=== PATIENT | female | born 1980 | race Caucasian/White ===

== ENCOUNTER 2019-11-18 14:09 | Outpatient (CLI) | payer BC, SELFPAY ==
[2019-11-18 14:34] LABS: Basophils Percent Auto 0.3 % (0.2-1.2); Eosinophils Absolute Auto 0.3 K/mm3 (0-0.3); Eosinophils Percent Auto 3.7 % (0-4.4); Hematocrit 30.7 % (37.0-47.0); Hemoglobin 10.2 g/dL (12.0-15.0); Immature Granulocyte Absolute 0.03 K/mm3 (0.00-0.031); Immature Granulocyte Percent A 0.3 % (0-0.5); Lymphocytes Absolute Auto 2.06 K/mm3 (0.9-3.2); Lymphocytes Percent Auto 22.7 % (18.3-44.2); Mean Corpuscular HGB Conc 33.2 g/dl (32-36); Mean Corpuscular Hemoglobin 30.5 pg (26-34); Mean Corpuscular Volume 91.9 fl (80-100); Mean Platelet Volume 10.2 fl (7.4-10.4); Monocytes Absolute Auto 0.6 K/mm3 (0.1-0.6); Monocytes Percent Auto 6.2 % (2.6-8.5); Neutrophils Absolute Auto 6.1 K/mm3 (1.3-6.7); Neutrophils Percent Auto 66.8 % (45.5-73.1); Platelet Count Result 234 k/mm3 (150-375); Red Blood Count 3.34 M/mm3 (4.2-5.4); Red Cell Distribution Width 12.3 % (11.5-14.5); White Blood Count 9.1 K/mm3 (4.5-10.0)
[2019-11-18 14:45] LABS: Hemoglobin A1C 4.7 % (<5.7)
[2019-11-18 15:19] LABS: Hepatitis B Surface Antigen Negative (Negative)
[2019-11-18 15:20] LABS: Free T4 Free Thyroxine 1.26 ng/mL (0.78-2.19); Vitamin D 25 Hydroxy 28.5 ng/mL
[2019-11-18 15:28] LABS: HIV 1/2 Ab P24 Ag Result Negative (Negative)
[2019-11-19 07:16] LABS: Rapid Plasma Reagin Non-Reactive (NonReactive)
== END 2019-11-18 14:10 | disposition home or self-care (01) ==
LOC: ANHLAB 14:13
PROVIDERS: Visit Provider Obstetrics & Gynecology
DX: Z36.9 Encounter for antenatal screening, unspecified (principal)
CPT/HCPCS: 36415; 82306; 83036; 84439; 84443; 85025; 86592; 86703; 86762; 87340; G0432

== ENCOUNTER 2019-11-19 13:09 | Outpatient (CLI) | payer BC, SELFPAY | END 2019-11-19 13:10 | disposition home or self-care (01) | PROVIDERS: Visit Provider Obstetrics & Gynecology | DX: Z36.9 Encounter for antenatal screening, unspecified (principal); Z3A.00 Weeks of gestation of pregnancy not specified | CPT/HCPCS: 36415; 86850; 86900; 86901 ==

== ENCOUNTER 2019-12-28 16:17 | Emergency (ER) | payer BC, SELFPAY ==
[2019-12-28 16:22] VITALS: BP 117/72; PULSE 91; RESP 18; TEMP 37; O2SAT 100
--- NOTE | 2019-12-28 16:41 | ED.ABDPAIN ---
HPI - Abdominal Pain General Chief Complaint: Abdominal Pain Stated Complaint: abd pain/17 wk preg Time Seen by Provider: 12/28/19 16:41 Source: patient Mode of arrival: ambulatory Limitations: no limitations History of Present Illness HPI narrative: A 39 y/o female presents to the ED with c/o sudden onset sharp lower ABD/groin pain that began while she was driving today. Pt is currently 17 weeks with twins. Pt notes that one fetus is at a high risk for Down's Syndrome. Pt's OBGYN is Dr. Thomas. Pt rates her current pain as a 6/10 in severity. Pt has not taken any medication for her pain. She denies numbness/tingling, N/V, dysuria, back pain, and vaginal bleeding. Location: other (lower ABD/groin) Pain scale (0-10): 6 Treatments prior to arrival: other (none) Related Data Home Medications Medication Instructions Recorded Confirmed levothyroxine 37.5 mcg PO DAILY 10/03/19 10/03/19 PNV cmb#95-ferrous fumarate-FA 1 tablet PO DAILY 12/28/19 [] aspirin [Aspir-81] 81 mg PO DAILY 12/28/19 mchfqvm-peknagjmi-ehat 1 tablet PO DAILY 12/28/19 ferrous sulfate 325 mg PO DAILY 12/28/19 omega 2-kwh-vmj-fish oil [Extreme 1 cap PO DAILY 12/28/19 [place]-3] Allergies Allergy/AdvReac Type Severity Reaction Status Date / Time ibuprofen Allergy Mild HIVES Verified 12/28/19 16:35 chocolate flavor Allergy Unknown Verified 12/28/19 16:35 shellfish derived Allergy Hives Verified 12/28/19 16:35 Review of Systems Review of Systems: All systems reviewed & are unremarkable except as noted in HPI and below Gastrointestinal: Gastrointestinal: Reports abdominal pain (lower/groin), Denies nausea and Denies vomiting Genitourinary: Genitourinary: Denies abnormal vaginal bleeding and Denies dysuria Musculoskeletal: Musculoskeletal: Denies back pain Neurologic: Denies numbness PMFSH Past Medical History Medical History Anemia Bronchitis Cholecystitis Ganglion cyst left wrist GERD (gastroesophageal reflux disease) Grand mal seizure Hypothyroid Knee tumor Tubal Tumor right knee, removed Surgical History Surgical History H/O laparoscopy History of cholecystectomy History of orthopedic surgery removal of benign tumor right femur as a teenager according to patient Social History Social History Smoking status: Current every day smoker Tobacco type: cigarettes Additional smoking assessment comments: 1/2 PPD Alcohol intake: unknown Gender identity (if verbalized by the patient): Female Comments No PCP on file. Exam Narrative: Exam Narrative: GENERAL: Well-appearing, well-nourished, and in no acute distress. HEAD: Normocephalic, atraumatic EYES: PERRLA and EOMI, conjunctiva clear without discharge THROAT:Mucous membranes moist, Oropharynx normal without erythema, exudate, peritonsillar swelling or fluctuance NECK: Supple, without lymphadenopathy or mass RESPIRATORY: No respiratory distress, Airway patent, Respirations non-labored, Clear to auscultation without rales, rhonchi or wheeze HEART: Regular rate and rhythm. No murmur heard. Normal peripheral pulses. ABDOMEN: Soft, nontender, nondistended, normal active bowel sounds. No masses. No rebound or guarding, No organomegaly. EXTREMITIES: No edema, normal strength with full range of motion. SKIN: Warm, dry, normal color without rash NEURO: Alert and oriented x3. CN 2-12 grossly intact. No focal deficits. PSYCH: Normal mood and affect. Course Course Emergency Course: Patient presented with sudden onset left groin pain that is resolving on its own. She reports pain is now 2/10 . I performed bedside ultrasound - no hydronephrosis seen on left kidney on ultrasounds. She has good movement to both fetuses. She has strong palpable left femoral artery and left pedal pulses. No clots see
[2019-12-28 16:48] LABS: Basophils Percent Auto 0.4 % (0.2-1.2); Eosinophils Absolute Auto 0.2 K/mm3 (0-0.3); Eosinophils Percent Auto 2.1 % (0-4.4); Hematocrit 32.3 % (37.0-47.0); Hemoglobin 10.9 g/dL (12.0-15.0); Immature Granulocyte Absolute 0.05 K/mm3 (0.00-0.031); Immature Granulocyte Percent A 0.5 % (0-0.5); Lymphocytes Absolute Auto 1.86 K/mm3 (0.9-3.2); Lymphocytes Percent Auto 17.8 % (18.3-44.2); Mean Corpuscular HGB Conc 33.7 g/dl (32-36); Mean Corpuscular Hemoglobin 31.2 pg (26-34); Mean Corpuscular Volume 92.6 fl (80-100); Mean Platelet Volume 9.7 fl (7.4-10.4); Monocytes Absolute Auto 0.6 K/mm3 (0.1-0.6); Monocytes Percent Auto 5.6 % (2.6-8.5); Neutrophils Absolute Auto 7.7 K/mm3 (1.3-6.7); Neutrophils Percent Auto 73.6 % (45.5-73.1); Platelet Count Result 263 k/mm3 (150-375); Red Blood Count 3.49 M/mm3 (4.2-5.4); Red Cell Distribution Width 13.2 % (11.5-14.5); White Blood Count 10.5 K/mm3 (4.5-10.0)
[2019-12-28 16:53] LABS: Add Urine Microscopic? YES; Appearance Urine Clear (Clear); Bacteria Urine Trace /hpf; Bilirubin Urine Negative (Negative); Blood Urine 1+ (Negative); Color Urine Yellow (Yellow); Glucose Urine UA Negative (Negative); Ketones Urine Negative (Negative); Leukocyte Esterase Ur Negative LEU/UL (Negative); Mucus Urine Rare /lpf; Nitrate Urine Negative (Negative); Protein Urine Negative (Negative); Specific Grav Ur 1.018 (1.001-1.035); Squamous Epithelial Cell Urine Occasional /hpf (Few); Urobilinogen Urine Negative mg/dL (<2.0); WBC Urine 0-3 /hpf
[2019-12-28 17:07] LABS: Alanine Aminotransferase 19 U/L (4-35); Albumin Level 3.7 g/dL (3.5-5.1); Alkaline Phosphatase 50 U/L (38-126); Aspartate Amino Transferase 24 U/L (14-36); Bilirubin,Total 0.3 mg/dL (0.2-1.3); Blood Urea Nitrogen 5 mg/dL (7-17); Calcium 8.6 mg/dL (8.4-10.2); Carbon Dioxide 24 mmol/L (22-30); Chloride 105 mmol/L (98-107); Estimated CRCL calculation 137 ml/min; Estimated Glomerular Filt Rate > 60; Glucose 76 mg/dL (65-105); Lipase 74 U/L (23-300); Sodium 133 mmol/L (137-145)
--- NOTE | 2019-12-28 18:34 | ED.ABDPAIN ---
HPI - Abdominal Pain General Chief Complaint: Abdominal Pain Stated Complaint: abd pain/17 wk preg Time Seen by Provider: 12/28/19 16:41 Related Data Home Medications Medication Instructions Recorded Confirmed levothyroxine 37.5 mcg PO DAILY 10/03/19 10/03/19 PNV cmb#95-ferrous fumarate-FA 1 tablet PO DAILY 12/28/19 [] aspirin [Aspir-81] 81 mg PO DAILY 12/28/19 fzdfjgh-vhfervakb-fzkm 1 tablet PO DAILY 12/28/19 ferrous sulfate 325 mg PO DAILY 12/28/19 omega 6-toc-pgz-fish oil [Extreme 1 cap PO DAILY 12/28/19 [place]-3] Allergies Allergy/AdvReac Type Severity Reaction Status Date / Time ibuprofen Allergy Mild HIVES Verified 12/28/19 16:35 chocolate flavor Allergy Unknown Verified 12/28/19 16:35 shellfish derived Allergy Hives Verified 12/28/19 16:35 PMFSH Past Medical History Medical History Anemia Bronchitis Cholecystitis Ganglion cyst left wrist GERD (gastroesophageal reflux disease) Grand mal seizure Hypothyroid Knee tumor Tubal Tumor right knee, removed Surgical History Surgical History H/O laparoscopy History of cholecystectomy History of orthopedic surgery removal of benign tumor right femur as a teenager according to patient Social History Social History Smoking status: Current every day smoker Tobacco type: cigarettes Additional smoking assessment comments: 1/2 PPD Alcohol intake: unknown Gender identity (if verbalized by the patient): Female Course Vital Signs Vital signs: Vital Signs Temperature 37.0 C 12/28/19 16:22 Pulse Rate 91 12/28/19 16:22 Respiratory Rate 18 12/28/19 16:22 Blood Pressure 117/72 12/28/19 16:22 Pulse Oximetry 100 12/28/19 16:22 Temperature 37.0 C 12/28/19 16:22 Pulse Rate 91 12/28/19 16:22 Respiratory Rate 18 12/28/19 16:22 Blood Pressure 117/72 12/28/19 16:22 Pulse Oximetry 100 12/28/19 16:22 MDM - Abdominal Pain Lab Data Result diagrams: 12/28/19 16:36 12/28/19 16:36 Labs: Lab Results 12/28/19 12/28/19 12/28/19 Range/Units 16:36 16:36 16:36 WBC 10.5 H (4.5-10.0) K/mm3 RBC 3.49 L (4.2-5.4) M/mm3 Hgb 10.9 L (12.0-15.0) g/dL Hct 32.3 L (37.0-47.0) % MCV 92.6 (80-100) fl MCH 31.2 (26-34) pg MCHC 33.7 (32-36) g/dl RDW 13.2 (11.5-14.5) % Plt Count 263 (150-375) k/mm3 MPV 9.7 (7.4-10.4) fl Immature Gran % (Auto) 0.5 (0-0.5) % Neut % (Auto) 73.6 H (45.5-73.1) % Lymph % (Auto) 17.8 L (18.3-44.2) % [place] % (Auto) 5.6 (2.6-8.5) % Eos % (Auto) 2.1 (0-4.4) % Baso % (Auto) 0.4 (0.2-1.2) % Lymph # (Auto) 1.86 (0.9-3.2) K/mm3 [place] # (Auto) 0.6 (0.1-0.6) K/mm3 Eos # (Auto) 0.2 (0-0.3) K/mm3 Baso # (Auto) 0.0 (0.0-0.1) K/mm3 Abs Immat Gran (auto) 0.05 H (0.00-0.031) K/mm3 Absolute Neuts (auto) 7.7 H (1.3-6.7) K/mm3 Absolute Nucleated RBC 0.0 (0.0-0.012) K/mm3 Nucleated RBC % 0.0 (0.0-0.2) % Sodium 133 L (137-145) mmol/L Potassium 4.0 (3.4-5.0) mmol/L Chloride 105 (98-107) mmol/L Carbon Dioxide 24 (22-30) mmol/L BUN 5 L D (7-17) mg/dL Creatinine 0.40 L (0.7-1.0) mg/dL Estim Creat Clear Calc 137 ml/min Estimated GFR > 60 (59 - ) Glucose 76 (65-105) mg/dL Calcium 8.6 (8.4-10.2) mg/dL Total Bilirubin 0.3 (0.2-1.3) mg/dL AST 24 (14-36) U/L ALT 19 (4-35) U/L Alkaline Phosphatase 50 (38-126) U/L Total Protein 7.0 (6.3-8.2) g/dL Albumin 3.7 (3.5-5.1) g/dL Lipase 74 (23-300) U/L Urine Color Yellow (Yellow) Urine Appearance Clear (Clear) Urine pH 6.0 (5.0-9.0) Ur Specific [place] 1.018 (1.001-1.035) Urine Protein Negative (Negative) mg/dL Urine Glucose (UA) Negative (Negative) mg/dL
== END 2019-12-28 20:07 | disposition home or self-care (01) ==
PROVIDERS: Emergency Provider General Practice; PCP Obstetrics & Gynecology
DX: O26.892 Other specified pregnancy related conditions, second trimester (principal); R10.32 Left lower quadrant pain; O30.009 Twin pregnancy, unspecified number of placenta and unspecified number of amniotic sacs, unspecified trimester; O99.282 Endocrine, nutritional and metabolic diseases complicating pregnancy, second trimester; E03.9 Hypothyroidism, unspecified; O99.012 Anemia complicating pregnancy, second trimester; D64.9 Anemia, unspecified; O99.612 Diseases of the digestive system complicating pregnancy, second trimester; K21.9 Gastro-esophageal reflux disease without esophagitis; O99.332 Smoking (tobacco) complicating pregnancy, second trimester; F17.210 Nicotine dependence, cigarettes, uncomplicated; Z3A.17 17 weeks gestation of pregnancy
CPT/HCPCS: 36415; 80053; 81001; 83690; 85025; 96374; 99284; J0131

== ENCOUNTER 2020-05-28 00:43 | Outpatient (CLI) | payer BC, SELFPAY ==
[2020-05-28 18:35] LABS: SARS-CoV-2 RNA PCR Negative
== END 2020-05-28 00:44 | disposition home or self-care (01) ==
LOC: ANHCOVIDDT 00:43
PROVIDERS: Visit Provider Obstetrics & Gynecology Gynecology
DX: Z01.812 Encounter for preprocedural laboratory examination (principal); Z20.828 Contact with and (suspected) exposure to other viral communicable diseases
CPT/HCPCS: 87635; C9803; U0003

== ENCOUNTER 2020-05-31 01:41 | Day surgery (SDC) | payer BC, SELFPAY ==
[2020-05-25 12:36] VITALS: BMI 29.6
[2020-05-31] VITALS (9 sets, daily range): BP systolic 139–185; BP diastolic 84–103; PULSE 41–54; RESP 13–16; TEMP 36.4; O2SAT 95–100
[2020-05-31] MEDS: LACTATED RINGERS 1,000 ML 30 ML IV CONT ×2 (07:00→09:25)
[2020-05-31] MEDS: ACETAMINOPHEN 500 MG TABLET 1000 MG PO (07:03)
--- NOTE | 2020-05-31 07:23 | P.HP_ITS ---
History of Present Illness History of Present Illness Consent: Risks, benefits, and alternatives have been discussed and questions answered. Patient agrees to proceed with procedure. Chief complaint: desires sterilization Narrative: Monei Mirza is a 39 year old female here for laparoscopic BTL. Patient is recently postop from csection for twins at 32 weeks at [facility] where they do not allow BTL. Patient has completed her childbearing and wants permanent sterilization. Risks of procedure including infection, bleeding, injury to internal organs, failure with increased ectopic, and general anesthesia reviewed. Patient is also aware this is a permanent, irreversible, sterilizing procedure. Patient voices understanding and agrees to proceed. [facility] Past Medical History Medical History (Updated 05/31/20 @ 07:28 by Cayla Deluna MD) Anemia Bronchitis Cholecystitis Ganglion cyst left wrist GERD (gastroesophageal reflux disease) Grand mal seizure had at age 1 years; none since then and on no medications Hypothyroid Knee tumor (normal spontaneous vaginal delivery) Tubal Tumor right knee, removed Surgical History Surgical History (Updated 05/31/20 @ 07:28 by Cayla Deluna MD) H/O laparoscopy History of twins 04/03 History of cholecystectomy History of orthopedic surgery removal of benign tumor right femur as a teenager according to patient Social History Social History Years smoked: 10 Smoking status: Current every day smoker Tobacco type: cigarettes Additional smoking assessment comments: 1/2 PPD Alcohol intake: unknown Gender identity (if verbalized by the patient): Female Spiritual care concerns: No Meds Home Medications and Allergies Home Medications Medication Instructions Recorded Confirmed Type levothyroxine 50 mcg PO DAILY 05/25/20 05/25/20 History Allergies Allergy/AdvReac Type Severity Reaction Status Date / Time ibuprofen Allergy Mild HIVES Verified 05/31/20 07:18 chocolate flavor Allergy Hives Verified 05/31/20 07:18 shellfish derived Allergy Hives Verified 05/31/20 07:18 Exam Const: General: healthy appearing, no acute distress and alert Orientation/consciousness: patient oriented x3 Resp: Effort & Inspection: normal respiratory effort Auscultation: clear to auscultation bilaterally Cardio: Rate: regular rate Rhythm: regular rhythm GI: GI Palp: Yes Soft to palpation, No Tenderness to palpation present (GI) and No Palpable mass present : External Female Exam: normal external appearance Speculum Exam - Vagina: normal appearance of the vagina and normal vaginal discharge Speculum Exam - Cervix: normal appearance of the cervix Bimanual exam- vagina & uter us: uterine size normal and consistency normal Bimanual Exam- Adnexa, other: normal adnexae and No adnexal tenderness Neuro: General: patient oriented x3 Assessment and Plan Assessment and plan (1) Encounter for sterilization: Code(s): Z30.2 - Encounter for sterilization Status: Acute Assessment and Plan: Plan to proceed with laparoscopic BTL
--- NOTE | 2020-05-31 07:26 | WPDANESEPPF ---
Anes - Initial Pre Proc Eval Procedure: Operation Date: 05/31/20 08:30 Proposed Procedures p Laparoscopic Bilateral Tubal Ligation with Fallopian Rings - Cayla Deluna MD Date/Time: 05/31/20 07:26 Surgeon: Cayla Deluna MD Pre Op Diagnosis: desires sterilization Patient Data Age: 39 Gender: F Height: 5 ft 2 in Weight: 71.15 kg Allergies Allergy/AdvReac Type Severity Reaction Status Date / Time ibuprofen Allergy Mild HIVES Verified 05/31/20 07:18 chocolate flavor Allergy Hives Verified 05/31/20 07:18 shellfish derived Allergy Hives Verified 05/31/20 07:18 Home Medications Medication Instructions Recorded Confirmed Type levothyroxine 50 mcg PO DAILY 05/25/20 05/25/20 History Patient hx anesthesia problems: none Family hx anesthesia problems: none PMFSH Social History Social History Years smoked: 10 Smoking status: Current every day smoker Tobacco type: cigarettes Additional smoking assessment comments: 1/2 PPD Alcohol intake: unknown Gender identity (if verbalized by the patient): Female Spiritual care concerns: No Anes - Eval Final PreProcedure Day of Procedure 05/31/20 07:26 Patient weight: normal Heart: regular rate and rhythm Lungs: clear to auscultation Airway: Mallampati scale class II Neurological: alert and oriented Last oral intake: >/= 8 hours ASA classification: II Emergent: no Anesthetic plan: proceed Anesthesia type and monitoring: general ETT and standard monitoring Informed Consent: The patient's anesthetic plan and its attendant risks and benefits were discussed with the patient/family/POA. Questions were solicited and answers provided to the satisfaction of the patient/family/POA.
--- NOTE | 2020-05-31 09:22 | PM.PROC ---
Procedure Note - Detailed Date of procedure: 05/31/20 Pre-op diagnosis: desires sterilization Post-op diagnosis: same Procedure performed: laparoscopic bilateral tubal ligation with Falope rings Description of procedure: The patient was taken to the operating room and placed under general anesthesia in the dorsal lithotomy position. She was prepped and draped in the usual sterile fashion. A bivalve speculum was placed in the vagina, cervix was grasped on the anterior lip with a tenaculum, and the acorn manipulator was placed. The speculum was removed. Attention was turned to the abdomen. A vertical skin incision was made at the base of the umbilicus. The Veress needle was placed, water drop test was normal, and opening patient pressure was 8mmHg. Pneumoperitoneum was obtained to patient pressure of 15mmHg. The Veress needle was removed. The abdomen was tented and the 5mm trocar was placed. The intra-abdominal placement was confirmed with the laparoscope. The patient was placed in Trendelenburg. A skin incision was made 2cm above the symphysis pubis in the midline. The 8mm trocar was placed under direct visualization. The tubes were brought into the visual field using a blunt probe. The right tube was grasped in the midportion with a ring applicator and the ring was applied. Good loop of tube was noticed within the applicator. The applicator was reset for the 2nd ring. The identical procedure was performed on the left side. Instruments were removed after picture documentation was taken. Pneumoperitoneum was reduced. Skin incisions are closed using 4-0 nylon in an interrupted fashion. The vaginal instruments are removed. Patient was taken down from lithotomy position and awakened from anesthesia. [facility] Surgeon: Cayla Deluna MD Cylinder Block Mechanic: maurilio olsen Estimated blood loss (mL): 5 Drains: No Packing: No Pathology: none sent Complications: No immediate complications Condition: stable Disposition: PACU Findings: normal-appearing tubes ovaries and uterus. Evidence of recent delivery.
[2020-05-31] MEDS: ONDANSETRON INJ 4 MG/2 ML VIAL IV PUSH (10:49)
--- NOTE | 2020-05-31 11:52 | SUR.PHASEII ---
DR. HOLLOWAY CALLED RE: SINUS BRADYCARDIA AND ELEVATED BLOOD PRESSURES; PT DENIES LIGHTHEADEDNESS; STATES SHE FEELS SLEEPY. DR. HOLLOWAY CLEARED PT TO BE DISCHARGED.
== END 2020-05-31 12:10 | disposition home or self-care (01) ==
PROVIDERS: Visit Provider Obstetrics & Gynecology Gynecology
PROC: (CPT 58671; principal; 2020-05-31 08:30)
DX: Z30.2 Encounter for sterilization (principal); K21.9 Gastro-esophageal reflux disease without esophagitis; E03.9 Hypothyroidism, unspecified; F17.210 Nicotine dependence, cigarettes, uncomplicated
CPT/HCPCS: 58671; A4264; A9270; J0330; J1100; J2250; J2405; J2704; J3010; J7120

== ENCOUNTER → 2022-04-11 13:10 | Outpatient (CLI) | payer BC, SELFPAY ==
--- NOTE | ~2022-04-11 | MM_ITS ---
EXAMINATION: MM screening camila BI w daniele HISTORY: Screening TECHNIQUE: Craniocaudal and mediolateral oblique 3-D tomosynthesis images were obtained and synthetic 2-D images were generated. CAD analysis was submitted and interpreted. COMPARISON: No prior mammogram is available for comparison at this institution. BREAST PARENCHYMAL COMPOSITION: There are scattered areas of fibroglandular density. FINDINGS: There is no mammographic evidence for malignancy in the right breast. There is a focal clus ter of indeterminate calcifications in the upper inner quadrant of the left breast, middle third. IMPRESSION: 1. Clustered indeterminate left breast calcifications, upper inner quadrant. 2. Magnification views are recommended. BI-RADS Category 0: Incomplete: Needs additional imaging evaluation. Reviewed, dictated and finalized at location A.
== END ==
PROVIDERS: PCP Nurse Practitioner; Visit Provider Nurse Practitioner
DX: Z12.31 Encounter for screening mammogram for malignant neoplasm of breast (principal); R92.8 Other abnormal and inconclusive findings on diagnostic imaging of breast
CPT/HCPCS: 77063; 77067

== ENCOUNTER → 2022-04-25 08:59 | Outpatient (CLI) | payer BC, SELFPAY ==
--- NOTE | ~2022-04-25 | MM_ITS ---
EXAMINATION: MM diagnostic mammo unilat LT HISTORY: Left breast calcifications on screening mammogram. TECHNIQUE: Magnification views of the left breast were performed. CAD analysis was submitted and inte rpreted. COMPARISON: 04/11/2022 FINDINGS: There are grouped fine pleomorphic calcifications in the middle third of the upper inner qu adrant at the 11:00 location 11 cm from the nipple no associated mass is identified. IMPRESSION: 1. Indeterminate left breast calcifications. 2. Stereotactic left breast biopsy is recommended. BI-RADS category 4, suspicious findings. Reviewed, dictated and finalized at location A.
== END ==
PROVIDERS: PCP Obstetrics & Gynecology Gynecology; Visit Provider Obstetrics & Gynecology Gynecology
DX: R92.8 Other abnormal and inconclusive findings on diagnostic imaging of breast (principal)
CPT/HCPCS: 77065

== ENCOUNTER → 2023-04-09 08:56 | Outpatient (CLI) | payer OTHER, SELFPAY ==
--- NOTE | ~2023-04-09 | MM_ITS ---
EXAMINATION: MM diagnostic camila BI w daniele HISTORY: Status post left partial mastectomy for DCIS TECHNIQUE: Bilateral ML, MLO and CC 3-D tomosynthesis images were performed and synthetic 2-D images were generated. CAD analysis was submitted and interpreted. COMPARISON: 04/03/2022creening mammogram and 04/25/2022 diagnostic left mammogram BREAST PARENCHYMAL COMPOSITION: There are scattered areas of fibroglandular density. FINDINGS: Postoperative change from left partial mastectomy including surgical clips are present in t he upper mid left breast. No suspicious mass or architectural distortion, malignant calcification, skin thickening or retractio n is noted otherwise. IMPRESSION: 1. Status post left partial mastectomy for DCIS; no evidence of malignancy 2. Routine annual mammographic screening is recommended BI-RADS Category 2: Benign finding(s). Reviewed, dictated and finalized at location A.
== END ==
DX: R92.8 Other abnormal and inconclusive findings on diagnostic imaging of breast (principal); D05.12 Intraductal carcinoma in situ of left breast
CPT/HCPCS: 77062; 77066; G0279

== ENCOUNTER 2025-02-26 15:20 | Outpatient (CLI) | payer OTHER, SELFPAY ==
--- NOTE | ~2025-02-26 | US_ITS ---
Pelvic ultrasound. Clinical History: Excessive and frequent menstruation Technique: Realtime transabdominal scanning of the pelvis was performed. Color flow Doppler and Doppl er spectral analysis were performed. Findings: The uterus is anteverted. The endometrial stripe has a thickness of 21 mm. No focal mass i s identified. The right ovary measures 4.2 x 2.3 x 2.2 cm. No significant right ovarian or adnexal mass is seen. The left ovary measures 2.7 x 1.5 x 1.9 cm. No significant left ovarian or adnexal mass is seen. There is no evidence of free fluid in the cul de sac. Impression: Prominent endometrial stripe is presumably related to stage in the menstrual cycle. Reviewed, dictated and finalized at location . Impression: Prominent endometrial stripe is presumably related to stage in the menstrual cy marshal.
== END 2025-02-26 15:21 | disposition home or self-care (01) ==
LOC: MICIMG 15:21
PROVIDERS: PCP Nurse Practitioner Family; Visit Provider Nurse Practitioner
DX: N92.0 Excessive and frequent menstruation with regular cycle (principal)
CPT/HCPCS: 76856

== ENCOUNTER 2025-03-23 01:30 | Day surgery (SDC) | payer OTHER, SELFPAY ==
[2025-03-16 10:47] VITALS: BMI 35.6
--- NOTE | 2025-03-16 11:00 | PC.NURSE ---
Report to the Outpatient Waiting Room, entrance under the green pavilion located off [facility], at time __07:00am on date 03/23/25 . Planned Procedure Time: 09:00am .? Time changes happen often and if your time is changed the preop area will call you the afternoon before. - You and your visitor will be asked to self-screen and do not enter if you have any COVID symptoms. Please call surgeon if you need to reschedule. - A mask is optional within the hospital at this time. Patients may have clear liquids (water, carbonated beverages, clear teas, apple juice) until 3 hours prior to surgery with a maximum of 20 ounces. - No food from midnight until time of surgery and no smoking, or chewing tobacco (or any form of nicotine). No chewing gum, candy or mints. (0600am) Take only the following medications with a SIP of water on the morning of surgery: ____None DO NOT STOP ANY OF YOUR OTHER PRESCRIPTION MEDICATIONS PRIOR TO SURGERY EXCEPT THE FOLLOWING Hold all vitamins and supplements for 3 days per anesthesiologist.Date of last dose 03/19/25 Medications to discontinue per physician None Date to take last dose None Please no make-up, nail [place] k[place], hairspray, perfume, deodorant, or body powder the day of surgery.? No jewelry (including any body piercings) or valuables the day of surgery, leave them at home.? Please take a shower or bath the night before, or the morning of, surgery with an antibacterial soap.? Wear comfortable, loose fitting clothing.? - Jewelry must be removed prior to entering the operating room.? Rings and piercings that are not removed may be cut off. - The hospital will not accept responsibility for valuables.? - Please leave all valuables, including medications, at home the day of surgery. If you are going home after surgery, a licensed production truck driver must drive you home.? - NO public transportation without another adult if you receive anesthesia. - We recommend that an adult stay with you for 24 hours following discharge. - We also recommend that you do not drive, make important decision, drink alcoholic beverages, or take any drugs that were not prescribed by your health care provider for at least 24 hours after your discharge time. Follow any additional instructions given to you from your surgeon. Telephone instructions given to __Patient and asked if any additional questions and then verbalized understanding. Patient advised to call surgeon office or pre surgery nurse liaison [phone] if any additional questions.
--- OUTSIDE RECORDS SUMMARY | 2025-03-23 01:33 | XMS_ITS ---
Author Organization [facility] Address [address] [place] [id number] Care Team Providers Care Manager N[place] Name Role Phone Tamar Chen [employer] Primary Care Provider + Jay Baker DO Unavailable Maycol Orlando MD Unavailable [phone] Jose Antonio Her MD Unavailable [phone] Active Problems Problem Noted Date Diagnosed Date Prophylactic use of tamoxifen 07/18/2023 Encounter for monitoring tamoxifen therapy 07/18 Personal history of radiation therapy 10/05/2022 Back skin lesion 09/15/2022 Overview (09/15/2022): Added automatically from request for surgery [id number] Intraductal carcinoma in situ of left breast Cancer Staging:Pathologic stage from 07/31/2022:Stage Unknown(pTis (DCIS), pNX, cM0, G3, ER+, WA+, HER2: Not Assessed) - Signed by Jose Antonio Her MD on 07/31/2022 Ductal carcinoma in situ (DCIS) of left breast 0 05/31/2022 Current Treatment and Therapy Plans No current plan information found. Past Treatment and Therapy Plans No past plan information found. Radiation Treatments * Course [id number] - 09/05/2022 Treatment Period Energy Fraction Dose Fractions Total Dose Plans Planned L BRST BST 08/30/2022 - 09/05/2022 250 5 / 1,250 PRONE L BRST 08/09/2022 - 09/05/2022 267 4,005 Reference Points Delivered L [id number] 08/09/2022 - 09/05/2022 4,005 L BRS [id number] 08/30/2022 - 09/05/2022 1,250
--- OUTSIDE RECORDS SUMMARY | 2025-03-23 01:33 | XMS_ITS | Data Portability ---
Author Organization [place] - [facility] [employer], Main Office Address [address] [place] [address] Assessment No assessment recorded. Plan of Treatment Reminders Order Date Submit Date Provider Last Modified By Organization Details Last Modified Time Details Appointments None recorded. Lab None recorded. Referral None recorded. Procedures None recorded. Surgeries None recorded. Imaging None recorded. Medication Orders ergocalcife rol (vitamin D2) 1,250 mcg (50,000 unit) capsule 2022 023 [facility] 1418, [address], [address], 10:42:26 Patient TargetsNo targets recorded. Patient Instructions Encounter Date Encounter Id Patient Instructions Last Modified By Organization Details Last Modified Time 02/27/2023 [id number] Wellness after 02/29/24 [email or web address] Not available 02/27/2023 10:52:39 Reason for Referral None Reported. Results Created Date Observation Date Name Description Value Unit Range Abnormal Flag Note LastModifiedBy Organization Detail LastModifiedTime 09/05/20 22 09/06/2022 HEMOG LOBIN A1C hemoglobin A1C 5.0 %_of_ total _HGB <5.7 normal For the purpo se of dean padrong for the prese nce of diabe vy: <5.7% Consi stent with the absen ce of diabe vy 5.7-6 .4% Consi stent with incre ased risk for diabe vy (pred iabet es) > or =6.5% Consi stent with diabe vy This assay resul t is consi stent with a decre ased risk of diabe vy. Curre ntly, no conse nsus exist elaina barker use of hemog lobin A1c for diagn osis of diabe vy in child arielle. Accor ding to Ameri can Diabe vy Assoc iatio n (ADA) guide lines , hemog lobin A1c <7.0% repre sents optim al contr ol in non-p regna nt diabe tic patie nts. Diffe rent irene cs may apply to speci fic patie nt popul ation s. Stand ards of Medic al Care in Diabe vy(A DA). Not Available [facility] [address] [place], [address], 09/06/2022 08:33:55 09/05/20 22 09/06/2022 VITAM IN D,25- OH,TO AVEL,I A vitamin D,25-oh,tota l,ia 18 NG/mL 30-100 low Vitam in D Statu s 25-OH Vitam in D: Defic iency : <20 ng/mL Insuf ficie ncy: 20 - 29 ng/mL Optim al: > or = 30 ng/mL For 25-OH Vitam in D testi ng on patie nts on D2-hughes pplem entat ion and patie nts for whom quant itati on of D2 and D3 fract ions is requi red, the [employer] Assur eD(TM ) 25-OH VIT D, (D2,D 3), LC/MS /MS is recom randi d: order code [id number] (nohemy ents >2yrs ). See Note 1 Note 1 For addit ional infor pili willson, pleas e refer to http: //[facility] pamela Dixon gndillon ics.c om/fa q/FAQ 199 (This link is being provi ded for infor pili griggs/ educa mitali manzo purpo ses only. ) Not Available [employer] [facility] [address] [place], [address], 09/06/2022 08:33:54 09/05/20 22 09/06/2022 VITAM IN B12/F OLATE , SERUM PANEL vitamin B12 375 pg/mL 200-11 00 normal Pleas e Note: Altho ugh the refer ence range for vitam in B12 is 200-1 100 pg/mL , it has been repor chris that betwe en 5 and 10% of patie nts with value s betwe en 200 and 400 pg/mL may exper ience neuro psych iatri c and hemat ologi c abnor malit ies due to occul t B12 defic iency ; less than 1% of patie nts with value s above 400 pg/mL will have sympt oms. Not Available [employer] [address] [place], [address], 09/06/2022 08:33:54 09/05/20 22 09/06/2022 VITAM IN B12/F OLATE , SERUM PANEL folate, serum 8.4 NG/mL normal Refer ence Range Low: <3.4 Borde rline : 3.4-5 .4 Erika l: >5.4 Not Available [employer] [address], [address], 09/06/2022 08:33:54 09/05/2009/06/2022 TSH TSH 1.98 mIU/L normal Refer ence Range > or = 20 Years 0.40- 4.50 Pregn xavier Range s First trime ster 0.26- 2.66 Secon d trime ster 0.55- 2.73 Third trime ster 0.43- 2.91 Not Available [employer] [address], [address], 09/06/2022 08:33:53 09/05/2009/06/2022 CBC (INCL UDES DIFF/ PLT) white blood cell count 4.9 thous and/u L 3.8-10 .8 normal Not Available [facility] [address] [place], [address], 09/06/2022 08:33:53 09/05/2009/06/2022 CBC (INCL UDES DIFF/ PLT) red blood cell count 4.63 wendy on/uL 3.80-5 .10 normal Not Available [employer] [address] [place], [address], 09/06/2022 08:33:53 09/05/20 22 09/06/2022 CBC (INCL UDES DIFF/ PLT) hemoglobin 13.1 g/dL 11.7-1 5.5 normal Not Available [address], [address], 09/06/2022 08:33:53 09/05/20 22 09/06/2022 CBC (INCL UDES DIFF/ PLT) hematocrit 39.8 % 35.0-4 5.0 normal Not Available [address], [address], 09/06/2022 08:33:53 09/05/20 22 09/06/2022 CBC (INCL UDES DIFF/ PLT) MCV 86.0 fL 80.0-1 00.0 normal Not Available [address], [address], 09/06/2022 08:33:53 09/05/20 22 09/06/2022 CBC (INCL UDES DIFF/ PLT) MCH 28.3 pg 27.0-3 3.0 normal Not Available [address], [address], 09/06/2022 08:33:53 09/05/20 22 09/06/2022 CBC (INCL UDES DIFF/ PLT) MCHC 32.9 g/dL 32.0-3 6.0 normal Not Available [address], [address], 09/06/2022 08:33:53 09/05/20 22 09/06/2022 CBC (INCL UDES DIFF/ PLT) RDW 13.0 % 11.0-1 5.0 normal Not Available [address], [address], 09/06/2022 08:33:53 09/05/20 22 09/06/2022 CBC (INCL UDES DIFF/ PLT) platelet count 294 thous and/u L 140-40 0 normal Not Available [address], [address], 09/06/2022 08:33:53 09/05/20 22 09/06/2022 CBC (INCL UDES DIFF/ PLT) MPV 10.1 fL 7.5-12 .5 normal Not Available [address], [address], 09/06/2022 08:33:53 09/05/20 22 09/06/2022 CBC (INCL UDES DIFF/ PLT) absolute neutrophils 3263 cells /uL 1500-7 800 normal Not Available [address], [address], 09/06/2022 08:33:53 09/05/20 22 09/06/2022 CBC (INCL UDES DIFF/ PLT) absolute lymphocytes 1156 cells /uL 850-39 00 normal Not Available [address], [address], 09/06/2022 08:33:53 09/05/20 22 09/06/2022 CBC (INCL UDES DIFF/ PLT) absolute monocytes 279 cells /uL 200-95 0 normal Not Available [address], [address], 09/06/2022 08:33:53 09/05/20 22 09/06/2022 CBC (INCL UDES DIFF/ PLT) absolute eosinophils 181 cells /uL 15-500 normal Not Available [address], [address], 09/06/2022 08:33:53 09/05/20 22 09/06/2022 CBC (INCL UDES DIFF/ PLT) absolute basophils 20 cells /uL 0-200 normal Not Available [address], [address], 09/06/2022 08:33:53 09/05/20 09/06/2022 CBC (INCL UDES DIFF/ PLT) neutrophils 66.6 % normal Not Available [address], [address], 09/06/2022 08:33:53 09/05/20 22 09/06/2022 CBC (INCL UDES DIFF/ PLT) lymphocytes 23.6 % normal Not Available [address], [address], 09/06/2022 08:33:53 09/05/20 22 09/06/2022 CBC (INCL UDES DIFF/ PLT) monocytes 5.7 % normal Not Available [address], [address], 09/06/2022 08:33:53 09/05/20 22 09/06/2022 CBC (INCL UDES DIFF/ PLT) eosinophils 3.7 % normal Not Available [address], [address], 09/06/2022 08:33:53 09/05/20 22 09/06/2022 CBC (INCL UDES DIFF/ PLT) basophils 0.4 % normal Not Available [address], [address], 09/06/2022 08:33:53 09/05/20 22 09/06/2022 COMPR EHENS ANTIONE METAB OLIC PANEL glucose 87 mg/dL 65-99 normal Fasti ng refer ence inter mirian Not Available [address], [address], 09/06/2022 08:33:52 09/05/20 22 09/06/2022 COMPR EHENS ANTIONE METAB OLIC PANEL urea nitrogen (BUN) 6 mg/dL 7-25 low Not Available [address], [address], 09/06/2022 08:33:52 09/05/20 22 09/06/2022 COMPR EHENS ANTIONE METAB OLIC PANEL creatinine 0.59 mg/dL 0.50-0 .99 normal Not Available [address], [address], 09/06/2022 08:33:52 09/05/20 22 09/06/2022 COMPR EHENS ANTIONE METAB OLIC PANEL eGFR 115 mL/mi n/1.7 3m2 > or = 60 normal The eGFR is based on the CKD-E PI 2020 equat ion. To calcu late the new eGFR from a previ ous Creat inine or Cysta tin C resul t, go to https ://mis can.denilson mckee/william varghese s/ kdoqi /gfr% 5Fcal culat or Not Available [address] [address] [place], [address], 09/06/2022 08:33:52 09/05/20 22 09/06/2022 COMPR EHENS ANTIONE METAB OLIC PANEL BUN/creatini ne ratio 10 (calc ) 6-22 normal Not Available [address], [address], 09/06/2022 08:33:52 09/05/20 22 09/06/2022 COMPR EHENS ANTIONE METAB OLIC PANEL sodium 140 mmol/ L 135-14 6 normal Not Available [address], [address], 09/06/2022 08:33:52 09/05/20 22 09/06/2022 COMPR EHENS ANTIONE METAB OLIC PANEL potassium 4.3 mmol/ L 3.5-5. 3 normal Not Available [address], [address], 09/06/2022 08:33:52 09/05/20 22 09/06/2022 COMPR EHENS ANTIONE METAB OLIC PANEL chloride 105 mmol/ L 98-110 normal Not Available [address], [place], [address], 09/06/2022 08:33:52 09/05/20 22 09/06/2022 COMPR EHENS ANTIONE METAB OLIC PANEL carbon dioxide 31 mmol/ L 20-32 normal Not Available [address], [address], 09/06/2022 08:33:52 09/05/20 22 09/06/2022 COMPR EHENS ANTIONE METAB OLIC PANEL calcium 9.0 mg/dL 8.6-10 .2 normal Not Available [address], [address], 09/06/2022 08:33:52 09/05/20 22 09/06/2022 COMPR EHENS ANTIONE METAB OLIC PANEL protein, total 6.5 g/dL 6.1-8. 1 normal Not Available [address], [address], 09/06/2022 08:33:52 09/05/20 22 09/06/2022 COMPR EHENS ANTIONE METAB OLIC PANEL albumin 4.0 g/dL 3.6-5. 1 normal Not Available [address], [address], 09/06/2022 08:33:52 09/05/20 22 09/06/2022 COMPR EHENS ANTIONE METAB OLIC PANEL globulin 2.5 g/dL_ (calc ) 1.9-3. 7 normal Not Available [address], [address], 09/06/2022 08:33:52 09/05/20 22 09/06/2022 COMPR EHENS ANTIONE METAB OLIC PANEL albumin/glob ulin ratio 1.6 (calc ) 1.0-2. 5 normal Not Available [address], [address], 09/06/2022 08:33:52 09/05/20 22 09/06/2022 COMPR EHENS ANTIONE METAB OLIC PANEL bilirubin, total 0.5 mg/dL 0.2-1. 2 normal Not Available [address], [address], 09/06/2022 08:33:52 09/05/20 22 09/06/2022 COMPR EHENS ANTIONE METAB OLIC PANEL alkaline phosphatase 72 U/L 31-125 normal Not Available [address], [address], 09/06/2022 08:33:52 09/05/20 22 09/06/2022 COMPR EHENS ANTIONE METAB OLIC PANEL AST 56 U/L 10-30 high Not Available [address], [address], 09/06/2022 08:33:52 09/05/20 22 09/06/2022 COMPR EHENS ANTIONE METAB OLIC PANEL ALT 68 U/L 6-29 high Not Available [address], [address], 09/06/2022 08:33:52 09/05/20 22 09/06/2022 LIPID PANEL , STAND GOYO cholesterol, total 156 mg/dL <200 normal Not Available [address], [address], 09/06/2022 08:33:52 09/05/20 22 09/06/2022 LIPID PANEL , STAND GOYO HDL cholesterol 55 mg/dL > or = 50 normal Not Available [address], [address], 09/06/2022 08:33:52 09/05/20 22 09/06/2022 LIPID PANEL , STAND GOYO triglyceride s 73 mg/dL <150 normal Not Available [address], [address], 09/06/2022 08:33:52 09/05/20 22 09/06/2022 LIPID PANEL , STAND GOYO LDL-choleste rol 85 mg/dL _(malinda c) normal Refer ence range : <100 Jose Alejandro able range <100 mg/dL for prima ry preve ntion ; <70 mg/dL for patie nts with CHD or diabe tic patie nts with > or = 2 CHD risk facto rs. LDL-C is now calcu lated using the Luanne n-Hop kins calcu gonzales n, which is a valid ated novel metho d provi ding karolina r accur acy than the Fried ailyn equat ion in the estim ation of LDL-C . Luanne willson SS et al. JOSI. 2013; 310(1 9): 2061- 2068 (http ://ed ucati on.24tidy. com/f aq/FA Q164) Not Available [facility] [address] [place], [address], 09/06/2022 08:33:52 09/05/20 22 09/06/2022 LIPID PANEL , STAND GOYO chol/HDLC ratio 2.8 (calc ) <5.0 normal Not Available [facility] [address] [place], [address], 09/06/2022 08:33:52 09/05/20 22 09/06/2022 LIPID PANEL , STAND GOYO non HDL cholesterol 101 mg/dL _(malinda c) <130 normal For patie nts with diabe vy plus 1 major ASCVD risk facto r, treat ing to a non-H DL-C goal of <100 mg/dL (LDL- C of <70 mg/dL ) is shanika richmond optio n. Not Available [facility] [address] [place], [address], 09/06/2022 08:33:52 01/15/20 23 01/14/2023 XR, ankle No observ ation record ed. [email or web address] [facility] [address], [place], [address], 01/16/2023 20:54:47 02/28/20 25 02/26/2025 imagi ng/di sreekanthos tic resul t No observ ation record ed. [facility] [address], [place], [address], 02/27/2025 07:35:04 Result Notes None recorded. 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 Not Available [facility] 3 01:48:19 Hypothyroi dism 87469848 Active 2021 Not Available [facility] 3 01:48:19 Obese 358399019 Active 2021 Not Available [facility] 3 01:48:19 Administra tion of influenza vaccine Active 2021 Not Available [facility] 3 01:48:20 Skin lesion 30763903 Active 2021 Not Available [facility] 3 01:48:20 Vitamin D deficiency 07219734 Active 2022 Tamar Chen NP [address] [place] [address] [address], [place], [address] , [facility] [employer] 3 10:31:33 Notes:breast cancer in left breast Problem Notes None recorded. Procedures Surgical History Date Name Laterality Status Provider Name and Address Organization Details Recorded Time 02/14/20 23 Date of Last Pap Smear completed Tamar Sunshine RN [facility] [employer] 02/27/2023 09:54:14 10/15/18 99 Cholecystectomy completed Not Available [facility] 12/14/2022 01:47:39 Tubal Ligation completed Not Available [facility] 12/14/2022 01:47:39 excision of mass completed Not Available [facility] 12/14/2022 01:47:39 Breast Biopsy completed Not Available [facility] 12/14/2022 01:47:39 Imaging Results None recorded. Procedure Notes None recorded. Medical Equipment None Reported. Allergies Allergen ID Allergen Name Allergen Category Reaction Reaction Severity Criticality Documentation Date Start Date Code Code System Note Provider Name and Address Organization Details Recorded Time 36982 ibuprofen medicatio n hives Not available Not available 12/14/2022 5640 RxNorm aleve is ok Not Available [facility] 3 01:49:05 Medications Name Sig Start Date Stop Date Status Note LastModified by Organization Details LastModified Time azithromyci n 250 mg tablet TAKE 2 TABLETS BY MOUTH ON DAY 1, AND THEN TAKE 1 TABLET BY MOUTH ONCE A DAY ON DAY 2 THROUGH DAY 5 02/27 completed Not Available Not Available Not Available hydrocodone 5 mg-acetamin ophen 325 mg tablet TAKE 1 TABLET BY MOUTH EVERY 4 HOURS NEEDED FOR PAIN 08/31 completed Not Available Not Available Not Available codeine 10 mg-guaifene sin 100 mg/5 mL oral liquid TAKE 5 ML BY MOUTH THREE TIMES DAILY NEEDED FOR COUGH 02/27 completed Not Available Not Available Not Available ergocalcife rol (vitamin D2) 1,250 mcg (50,000 unit) capsule TAKE 1 CAPSULE BY MOUTH ONCE A WEEK active Not Available Not Available No t Available methylpredn isolone 4 mg tablets in a dose pack TAKE BY MOUTH DIRECTED ON INSIDE OF PACKAGE 02/27 completed Not Available Not Available Not Available SSD 1 % topical cream 02/27 completed Not Available Not Available Not Available tamoxifen 20 mg tablet TAKE 1 TABLET BY MOUTH ONCE DAILY active Not Available Not Available No t Available diclofenac 1 % topical gel APPLY 2 GRAMS TOPICALLY 4 TIMES DAILY NEEDED 08/31 completed Not Available Not Available Not Available Vitals Date Recorded Body height Body mass index (BMI) Body weight Body temperature Heart rate Respiratory rate Oxygen saturation Oxygen saturation in Arterial blood by Pulse oximetry Systolic blood pressure Diastolic blood pressure Provider Name and Address Organization Details Last Updated DateTime 3 157.48 cm 37.4 kg/m2 00742.5 9 g 96.9 [degF] 78 /min 16 /min 98 % 98 % 122 mm[Hg] 76 mm[Hg] Tamar Sunshine RN [place] [facility] [employer] 3 09:50:30 Date Recorded Body mass index (BMI) Body height Oxygen saturation Oxygen saturation in Arterial blood by Pulse oximetry Heart rate Body temperature Body weight Systolic blood pressure Diastolic blood pressure Provider Name and Address Organization Details Last Updated DateTime 2 37.5 kg/m2 157.48 cm 98 % 98 % 94 /min 98.6 [degF] 71702.4 4 g 112 mm[Hg] 88 mm[Hg] Not Available [facility] 3 01:47:46 Social History Question Answer Notes LastModified by Organizat ion Details LastModified Time Tobacco Smoking Status Former Smoker Not Available [facility] 12/14/2022 01:47:16 Do You Have An Advance Directive? No MIGRATION.[id number] Information not available 12/14/2022 Is Blood Transfusion Acceptable In An Emergency? Yes Information not available 02/27/2023 What Is Your Level Of Caffeine Consumption? Heavy MIGRATION.[id number] Information not available 12/14/2022 What Is Your Code Status? Full Code Information not available 02/27/2023 In The 14 Days Before Symptom Onset, Have You Had Close Contact With A Laboratory-confi rmed COVID-19 While That Case Was Ill? No MIGRATION.02483 [id number] Information not available 12/14/2022 In The 14 Days Before Symptom Onset, Have You Had Close Contact With A Person Who Is Under Investigation For COVID-19 While That Person Was Ill? No MIGRATION.33013 94055 Information not available 12/14/2022 What Type Of Diet Are You Following? REGULAR MIGRATION.70897 [id number] Information not available 12/14/2022 What Is The Highest Grade Or Level Of School You Have Completed Or The Highest Degree You Have Received? [id number] Information not available 02/27/2023 Have There Been Any Changes To Your Family Or Social Situation? No MIGRATION.03182 72593 Information not available 12/14/2022 What Is The Fluoride Status Of Your Home? Fluoridated MIGRATION.50901 13164 Information not available 12/14/2022 When Did You Quit Smoking? 1-5yearssincelastci garette MIGRATION.85253 67491 Information not available 12/14/2022 Do You Use Insect Repellent Routinely? Yes Information not available 02/27/2023 Where Do You Live? [place]House MIGRATION.53180 [address] Information not available 12/14/2022 Do You Have A Medical Power Of Out Of School Hours Care Worker? No MIGRATION.24495 97408 Information not available 12/14/2022 How Many Children Do You Have? 3 Information not available 02/27/2023 Do You Have Any Pets? Yes MIGRATION.24205 05440 Information not available 12/14/2022 What Is Your Relationship Status? MIGRATION.89179 90222 Information not available 12/14/2022 Do You Use Your Seat Belt Or Car Seat Routinely? Yes Information not available 02/27/2023 Do You Have Smoke And Carbon Monoxide Detectors In Your Home? Yes MIGRATION.35398 02214 Information not available 12/14/2022 At What Age Did You Start Smoking Tobacco? 28 Information not available 02/27/2023 Are You Passively Exposed To Smoke? No MIGRATION.85625 84798 Information not available 12/14/2022 Are There Any Smokers In Your House? No MIGRATION.55033 39141 Information not available 12/14/2022 Do You Participate In Social Media? Yes MIGRATION.02963 70849 Information not available 12/14/2022 Do You Use Sunscreen Routinely? Yes Information not available 02/27/2023 Have You Recently Traveled Abroad? No MIGRATION.74841 84434 Information not available 12/14/2022 Are You Currently In School? No MIGRATION.75830 85165 Information not available 12/14/2022 Sex: Female Functional Status Question Answer Note LastModified by Organizat ion Details LastModified Time Do you use any illicit or recreational drugs? No MIGRATION.47910 89032 Information not available 12/14/2022 Do you or have you ever used any other forms of tobacco or nicotine? Yes short period of time Information not available 02/27/2023 What is your level of alcohol consumption? Occasional MIGRATION.61023 02589 Information not available 12/14/2022 Are you currently employed? No Information not available 02/27/2023 Do you or have you ever used e-cigarettes or vape? Former user of electronic cigarettes Information not available 02/27/2023 What is your exercise level? Occasional MIGRATION.24410 99679 Information not available 12/14/2022 Mental Status Question Answer Note LastModified by Organization D etails LastModified Time Do you feel stressed (tense, restless, nervous, or anxious, or unable to sleep at night)? [id number] Information not available 02/27/2023 Family History Relationship Description Onset Age of this Age Resolved Age Notes LastModified by Organization Details LastModified Time Mother Diabetes mellitus [id number] [id number] Not available 12/14/2022 01:47:40 Father Myocardial infarction MIGRATION.522 [id number] Not available 12/14/2022 01:47:40 Maternal Aunt Malignant tumor of breast MIGRATION.101 [id number] Not available 12/14/2022 01:47:40 Maternal Aunt Malignant tumor of breast MIGRATION.786 [id number] Not available 12/14/2022 01:47:40 Notes:BRCA Gene Negative. Medical History Condition Response KIDNEY STONES Y CANCER: SPECIFY Y Gynecological History Statement/Question Response Abnormal Pap N Flow Moderate Date of LMP 02/07/2023 Duration of Flow (days) 4 Age at Menarche 9 Most Recent Mammogram Date of Last Colonoscopy Frequency of Cycle (Q days) 28 Most Recent Bone Density Menses Monthly Y Date of Last Pap Smear 02/13/2023 Obstetrics History GPAL:G 3 P 0 0 0 0 Immunizations Vaccine Type Date Status Note Provider Nam e and Address Organization Details Recorded Time Influenza, split virus, quadrivalent, PF 08/31/2022 completed Not Available [employer] 01:49:04 Past Encounters Encounter ID Performer Location Encounter Start Date Encounter Closed Date Diagnosis/Indication Diagnosis SNOMED-CT Code Diagnosis ICD10 Code Diagnosis Note [id number] Ashok Garsia MD [facility] [address] [place] [id number] 08/31/2022 00:00:00 08/31/2022 15:32:55 [id number] Tamar Chen NP [facility] [address] [place] [id number] 02/27/2023 09:26:35 02/27/2023 11:16:18 Adult health examination 964264173 Z00.00 Encouraged well balanced meals, active lifestyle and routine vision and dental appts. Vitamin D deficiency 347 37451 E55.9 Vit d 50,000 units po weekly. Vit d rich foods. Health Concerns Section Related Observation LastModified by Organization Detai ls LastModified Time None Recorded Concern Status LastModified by Organization Details LastModified Time None Recorded Advance Directives Directive N: Payers Encounter Date Sequence Insurance Name Policy Number Policy Mckeon Covered Member ID Mckeon Member ID Guarantor Name 02/27/2023 1 [facility] [id number] Sanket Washburn [id number] Monie Washburn Notes Date Note Type Note Provider Name and Address Organization Details Recorded Time 02/27/2023 text/html Here for ena s visit. Mammogram- 04/09/23. Hx left breast cancer.Colonoscop y start age 43 yo. Heartburn all day long. Occasional acid sharepoint developer. Stopped soda, but had one recently. Flared it up. Tamar Chen NP [address] [facility], [facility] [address], [place], [address], [facility] [place] [employer] 02/27/2023 10:53:27 OBGyn Episode No OBEpisode recorded.
--- OUTSIDE RECORDS SUMMARY | 2025-03-23 01:33 | XMS_ITS | Clinical Summary ---
Author Organization [facility] Address [address] [place] [id number] Care Team Providers Care Vocal Music Instructor Name Role Phone Tamar Chen NP Primary Care Provider + Jay Baker DO Unavailable [phone] Maycol Orlando MD Unavailable [phone] Jose Antonio Her MD Unavailable [phone] Allergies Active Allergy Reactions Criticality Noted Date Comments Chocolate Hives,Swelling Medium 06/02/2022 Ibuprofen Hives,Unknown Medium 06/03/2011 Other reaction(s): Hives Hives Polyester Hives Medium 06/02/2022 Shellfish Containing Products Hives,Swelling Medium 06/02/2022 Medications silver sulfadiazine (SILVADENE, SSD) 1 % cream Apply topically 3 (three) times a day 50 g 2 Active Additional Information Patient not taking.Reported on 07/18/2023 ergocalciferol (VITAMIN D) 50,000 unit capsule Take 1 capsule (50,000 Units total) by mouth once a week Active gabapentin (NEURONTIN) 300 mg capsuleIndicatio ns:Vasomotor Symptoms associated with Menopause Take 1 capsule (300 mg total) by mouth daily Take at bedtime 30 capsule 11 3 Active tamoxifen (NOLVADEX) 20 mg tabletIndication s:Prophylactic use of tamoxifen Take 1 tablet by mouth once daily 30 tablet 11 4 Active Active Problems Problem Noted Date Diagnosed Date Prophylactic use of tamoxifen 07/18/2023 Encounter for monitoring tamoxifen therapy 07/18 Personal history of radiation therapy 10/05/2022 Back skin lesion 09/15/2022 Overview (09/15/2022): Added automatically from request for surgery [id number] Intraductal carcinoma in situ of left breast Cancer Staging:Pathologic stage from 07/31/2022:Stage Unknown(pTis (DCIS), pNX, cM0, G3, ER+, [place]+, HER2: Not Assessed) - Signed by Jose Antonio Her MD on 07/31/2022 Ductal carcinoma in situ (DCIS) of left breast 0 05/31/2022 Immunizations Immunization Administration Dates Next Due Tdap 03/22/2020 Surgical History Surgery Date Site/Laterality Comments BREAST BIOPSY 05/19/2022 Left CHOLECYSTECTOMY KNEE SURGERY Right tumor removed (benign) VAGINAL DELIVERY X1 SECTION N/A DELIVERED TWINS BREAST LUMPECTOMY Left Medical History Medical History Date Comments Hypertension Motion sickness GERD (gastroesophageal reflux disease) NO MEDS Seizures (HCC) LAST SEIZUREAGE 1 Breast cancer (HCC) Family History Medical History Relation Name Comments No Known Problems Brother Coronary artery disease Father Diabetes Mother Brain cancer Mother's Brother Breast cancer Mother's Sister 1 Cervical cancer Mother's Sister 2 Brain cancer Mother's Sister 3 Leukemia Mother's Sister 3 Lung cancer Other maternal aunt Throat cancer Other maternal aunt No Known Problems Sister Relation Name Status Comments Brother Alive Father Mother Mother's Brother Mother's Sister 1 Alive Mother's Sister 2 Alive Mother's Sister 3 Alive Other maternal aunt Sister Alive Social History Tobacco Use Types Packs/Day Years Used Date Smoking Tobacco: Former Cigarettes 0.1 13 0 10/28/2006 - 10/28/2019 Smokeless Tobacco: Never Tobacco Cessation:Counseling Given: Not Answered AUDIT-C Answer Date Recorded Frequency of Alcohol Consumption Not on file 07/30/2024 Q2: How many drinks containi ng alcohol do you have on a typical day when you are drinking? 1 or 2 07/30/2024 Frequency of Binge Drinking Not on file 07/15 Personal Safety Answer Date Recorded Have you ever been in or are you currently in a harmful physical or emotional relationship or is someone making you feel afraid or unsafe? 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 Gender Identity Not on file Sexual Orientation Not on file 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 on file Not on file Obstetrics History Last Filed Vital Signs Vital Sign Reading Time Taken Comments Blood Pressure 189/127 11/04/2024 1:29 PM SALVAGE MACHINE OPERATOR Pulse 80 11/04/2024 1:29 PM SALVAGE MACHINE OPERATOR Temperature 36.6 C (97.9 F) 08/04/2024 11:50 AM CDT Respiratory Rate 17 08/04/2024 3:02 PM CDT Oxygen Saturation 100% 11/04/2024 1:29 PM SALVAGE MACHINE OPERATOR Inhaled Oxygen Concentration - - Weight 88 kg (194 lb) 11/04/2024 1:29 PM SALVAGE MACHINE OPERATOR Height 157.5 cm (5' 2) 08/04/2024 11:50 AM CDT Body Mass Index 35.48 08/04/2024 11:50 AM CDT Plan of Treatment Health Maintenance Due Date Last Done Comments Cervical Cancer Screening 1978 Colon Cancer Screening-Colonoscopy 1978 Depression Screening 1978 Hepatitis C Screening 1978 Hepatitis B Screening 1996 Regular Well Visit/Exam 18-64 1996 Pneumococcal vaccine <65 (1 of 2 - PCV) 1997 Zoster Vaccine (1 of 2) 1997 Covid-19 Vaccine (4 - 2023-2 5 season) 2024 01/23/2022, 02/04/2021, 01/07/2021 Breast Cancer Screening-Mammogram 05/28/2025 05/28/2024 DTaP/Tdap/Td Vaccine (2 - Td or Tdap) 03/22/2030 03/22/2020 Influenza Vaccine Completed 08/21/2024, 08/31/2022 HPV Vaccines Aged Out No longer eligi ble based on patient's age to complete this topic Medical Devices Implanted Type Area Record Filing Clerk Device Identifier Shelf Expiration Date Model / Serial / Lot [employer] [place] 20ga 7.5cm 2 Part Stabilizer Repositionable Depth Shon [id number] - [id number] Implanted:Qty: 1 on 07/05/2022 at [facility] [employer] [id number] 05/17/2027 [id number] / / [id number] Procedures Procedure Name Priority Date/Time Associated Diagnosis Comments DIAGNOSTIC MAMMOGRAM BILATERAL W EVANS Schedule Routine, Read Routine (OP Routine) 05/28/2024 10:39 AM CDT 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 She comes in today for follow-up of the left breast, and screening of the right breast. COMPARISON: 04/09/2023, 07/05/2022, 05/19/2022, 04/25/2022, 04/03/2022. TECHNIQUE: CC and MLO digital breast tomosynthesis of both breasts with C view was performed. FINDINGS: DENSITY: There are scattered areas of fibroglandular density. There are expected, evolving postoperative changes of breast conservation therapy in the central upper left breast at posterior and middle depth. Benign developing fat necrosis noted at the lumpectomy site. There are no new suspicious findings in either breast on mammogram. IMPRESSION: Expected postoperative changes in the left breast. No new suspicious findings identified. Continued monthly breast self-examination and clinical follow-up is recommended. Imaging follow-up is recommended with bilateral diagnostic mammogram in 12 months per [facility] protocol. BIRADS: 2 - Benign The patient was notified of the results at the time of the examination. THIS IS AN ELECTRONICALLY VERIFIED FINAL REPORT 05/28/2024 10:46 AM - Electronically signed by Fortino Ruiz M.D. RL: ALVAREZ Report ID: [id number] Reading Location: [facility] Shaye Mena MD IMG MAMMO PROCEDURES Final Result from Last 3 Months or Most Recently Relevant to Health Maintenance Insurance [facility] Address: [place] [address] CHOICE [employer]US [facility] [place] [address] [employer] [facility] Address: [facility] [id number] [place] [id number] Care Teams Vocal Music Instructor Relationship Specialty Start Date End Date Tamar Chen NP PCP - General Nurse Practitioner 09/01/22 Jay Baker DO [address] [place] [address] MEDICAL ONCOLOGY, [address] [id number] Medical Oncologist/Irs Agent Hematology and Oncology 09/01/22 Maycol Orlando MD [address] [place] [address] [address] [place] [address] Surgeon General Surgery 10/17/22 Jose Antonio Her MD [address] [place] [address] [address] [place] [address] Radiation Oncologist Radiation Oncology 06/11/24
--- OUTSIDE RECORDS SUMMARY | 2025-03-23 01:33 | XMS_ITS | Referral Summary ---
Author Organization [facility] Address [address] [place] [id number] Care Team Providers Care Strip Cutting Machine Operator Name Role Phone Tamar Chen SPUN PASTE MACHINE OPERATOR Primary Care Provider + Jay Baker DO Unavailable [phone] Maycol Orlando MD Unavailable [phone] Jose Antonio Her MD Unavailable [phone] Allergies Active Allergy Reactions Criticality Noted [...] (09/15/2022): Added automatically from request for surgery [id number] Intraductal carcinoma in situ of left breast Cancer Staging:Pathologic stage from 07/31/2022:Stage Unknown(pTis (DCIS), pNX, cM0, G3, ER+, [place]+, HER2: Not Assessed) - Signed by Jose Antonio Her MD on 07/31/2022 Ductal carcinoma in situ (DCIS) of left breast 0 05/31/2022 Immunizations Immunization Administration Dates Next Due Tdap 03/22/2020 Social History Tobacco Use Types Packs/Day Years [...] on file Legal Sex 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 Gender Identity Not on file Sexual Orientation Not on file 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 on file Not on file Last Filed Vital Signs Vital Sign Reading Time Taken Comments Blood Pressure 189/127 11/04/2024 1:29 PM LAUNDRY EQUIPMENT OPERATOR Pulse 80 11/04/2024 1:29 PM LAUNDRY EQUIPMENT OPERATOR Temperature 36.6 C (97.9 F) 08/04/2024 11:50 AM CDT Respiratory Rate 17 08/04/2024 3:02 PM CDT Oxygen Saturation 100% 11/04/2024 1:29 PM LAUNDRY EQUIPMENT OPERATOR Inhaled Oxygen Concentration - - Weight 88 kg (194 lb) 11/04/2024 1:29 PM LAUNDRY EQUIPMENT OPERATOR Height 157.5 cm (5' 2) 08/04/2024 11:50 AM CDT Body Mass Index 35.48 08/04/2024 11:50 AM CDT Plan of Treatment Not on file Medical Devices Implanted Type Area Section Repairer Device Identifier Shelf Expiration Date Model / Serial / Lot [employer] [place] 20ga 7.5cm 2 Part Stabilizer Repositionable Depth Shon [id number] - [id number] Implanted:Qty: 1 on 07/05/2022 at [facility] [employer] [id number] 05/17/2027 [id number] / / [id number] Procedures Procedure Name Priority Date/Time Associated Diagnosis [...] bilateral diagnostic mammogram in 12 months per [facility] protocol. BIRADS: 2 - Benign The patient was notified of the results at the time of the examination. THIS IS AN ELECTRONICALLY VERIFIED FINAL REPORT 05/28/2024 10:46 AM - Electronically signed by Fortino Ruiz M.D. RL: ALVAREZ Report ID: [id number] Reading Location: [facility] Shaye Mena MD IMG MAMMO PROCEDURES Final Result from Last 3 Months or Most Recently Relevant to Health Maintenance Insurance [employer] Care Teams Strip Cutting Machine Operator Relationship Specialty Start Date End Date Tamar Chen NP PCP - General Nurse Practitioner 09/01/22 Jay Baker DO [address] [place] [address] MEDICAL ONCOLOGY, [facility] [address] [place], [place] [id number] Medical Oncologist/Railroad Repairer Hematology and Oncology 09/01/22 Maycol Orlando MD [facility] [address] [place], [place] [id number] Surgeon General Surgery 10/17/22 Jose Antonio Her MD [facility] [address] [place], [place] [id number] Radiation Oncologist Radiation Oncology 06/11/24
--- NOTE | 2025-03-23 07:35 | WPDHPUPDATE1 ---
History and Physical Update Update Date/Time: 03/23/25 07:35 History and Physical has been reviewed, including an updated exam of the patient. There are NO changes in the patient's condition. Risks, benefits, and alternatives have been discussed and questions answered. Patient agrees to proceed with procedure.
--- NOTE | 2025-03-23 07:35 | PM.HPGS ---
History of Present Illness History of Present Illness Consent: Risks, benefits, and alternatives have been discussed and questions answered. Patient agrees to proceed with procedure. Chief complaint: menorrhagia Narrative: Monie Washburn is a 44 year old female who has been on tamoxifen. The patient and approximately 1 to 2 cycles per year. Patient had heavy bleeding episode starting February 17. Patient had pelvic ultrasound on February 26 that revealed endometrium 21mm. Due to the thickened endometrium for this time of the cycle and the perimenopausal state on tamoxifen, it was recommended to proceed D&C hysteroscopy. Review of Systems Review of Systems: not repeated day of surgery; patient states no changes in status [facility] Past Medical History Medical History (Updated 03/23/25 @ 07:54 by Cayla Deluna MD) Obese Breast cancer (normal spontaneous vaginal delivery) X1 Hypothyroid Tumor right knee, removed Ganglion cyst left wrist GERD (gastroesophageal reflux disease) Bronchitis Grand mal seizure had at age 1 years; none since then and on no medications Anemia Surgical History Surgical History (Updated 03/23/25 @ 07:53 by Cayla Deluna MD) History of bilateral tubal ligation H/O lumpectomy History of twins 04/03 History of cholecystectomy H/O laparoscopy 1997 adhesions History of orthopedic surgery removal of benign tumor right femur as a teenager according to patient Family History Family History (Updated 01/10/24 @ 09:33 by Mena Waters CMA) Father Hypertension Heart disease Cerebrovascular accident Mother Diabetes mellitus Hypertension Social History Social History (Updated 01/10/24 @ 09:35 by Mena Waters CMA) Years smoked: 10 Smoking status: Former smoker Tobacco type: cigarettes Smoking end date: 10/15/19 Additional smoking assessment comments: 1/2 PPD Alcohol intake: current Alcohol use details: Rarely few times a year Substance use: never Do You Feel Safe in your Home?: Yes Lack of Transportation: No Lack of Food: Never True Current Housing: I Have Housing Concerned About Future Housing: No Difficulty Paying Gas/Electric Bills: No Difficulty Paying for Meds: No Currently Unemployed: No Education: Don't Know Difficulty w/ Childcare or Family Care: No Living arrangements: with family Occupation/Education: occupation Additional occupation/education comments: Housewife Gender identity (if verbalized by the patient): Female Spiritual care concerns: No Agree to blood products: Yes Meds Home Medications and Allergies Home Medications ?Medication ?Instructions ?Recorded ?Confirmed ?Type tamoxifen 20 mg tablet 20 mg PO DAILY 01/10/24 03/20/25 History cholecalciferol (vitamin D3) 125 125 mcg PO DAILY #90 caps 08/21/24 03/20/25 Rx mcg (5,000 unit) capsule Allergies Allergy/AdvReac Type Severity Reaction Status Date / Time ibuprofen Allergy Mild HIVES Verified 03/20/25 07:50 chocolate flavor Allergy Hives Verified 03/20/25 07:50 shellfish derived Allergy Hives Verified 03/20/25 07:50 Exam Const: General: healthy appearing and alert Orientation/consciousness: patient oriented x3 Resp: Effort & Inspection: normal respiratory effort Auscultation: clear to auscultation bilaterally Cardio: Rate: regular rate Rhythm: regular rhythm GI: GI Palp: Yes Soft to palpation, No Tenderness to palpation present (GI) and No Palpable mass present : External Female Exam: normal external appearance Speculum Exam - Vagina: normal appearance of the vagina and normal vaginal discharge Speculum Exam - Cervix: normal appearance of the cervix Bimanual exam- vagina & uterus: uterine size normal and consistency normal Bimanual Exam- Adnexa, other: normal adnexae and No adnexal tenderness Neuro: General: patient oriented x3 Assessment and Plan Assessment and plan (1) Menorrhagia: Code(s): N92.0 - Excessive and frequent menstruation with regular cycle Status: Acute Assessment and Plan: Perimenopausal bleeding with tamoxifen. Plan to proceed with D&C hysteroscopy
[2025-03-23] MEDS: ACETAMINOPHEN 500 MG TABLET 1000 MG PO (08:15)
[2025-03-23] MEDS: LACTATED RINGERS 1,000 ML 30 ML IV CONT (08:15)
--- NOTE | 2025-03-23 08:27 | P.PNAN_ITS ---
Anes - Initial Pre Proc Eval Procedure: Operation Date: 03/23/25 09:00 Proposed Procedures p Hysteroscopy Dilation and Curettage - Cayla Deluna MD Date/Time: 03/23/25 08:27 Surgeon: Cayla Deluna MD Pre Op Diagnosis: menorrhagia Patient Data Age: 44 Gender: F Height: 1.57 m Weight: 88.5 kg Allergies Allergy/AdvReac Type Severity Reaction Status Date / Time ibuprofen Allergy Mild HIVES Verified 03/20/25 07:50 chocolate flavor Allergy Hives Verified 03/20/25 07:50 shellfish derived Allergy Hives Verified 03/20/25 07:50 Home Medications ?Medication ?Instructions ?Recorded ?Confirmed ?Type tamoxifen 20 mg tablet 20 mg PO DAILY 01/10/24 03/20/25 History cholecalciferol (vitamin D3) 125 125 mcg PO DAILY #90 caps 08/21/24 03/20/25 Rx mcg (5,000 unit) capsule Patient hx anesthesia problems: none Family hx anesthesia problems: none Results Review: All pre-operative results and documents have been reviewed as part of the pre- operative evaluation. [facility] Past Medical History Medical History Obese Breast cancer (normal spontaneous vaginal delivery) X1 Hypothyroid Tumor right knee, removed Ganglion cyst left wrist GERD (gastroesophageal reflux disease) Bronchitis Grand mal seizure had at age 1 years; none since then and on no medications Anemia Surgical History Surgical History History of bilateral tubal ligation H/O lumpectomy History of twins 04/03 History of cholecystectomy H/O laparoscopy 1997 adhesions History of orthopedic surgery removal of benign tumor right femur as a teenager according to patient Family History Family History Father Hypertension Heart disease Cerebrovascular accident Mother Diabetes mellitus Hypertension Social History Social History Years smoked: 10 Smoking status: Former smoker Tobacco type: cigarettes Smoking end date: 10/15/19 Additional smoking assessment comments: 1/2 PPD Alcohol intake: current Alcohol use details: Rarely few times a year Substance use: never Do You Feel Safe in your Home?: Yes Lack of Transportation: No Lack of Food: Never True Current Housing: I Have Housing Concerned About Future Housing: No Difficulty Paying Gas/Electric Bills: No Difficulty Paying for Meds: No Currently Unemployed: No Education: Don't Know Difficulty w/ Childcare or Family Care: No Living arrangements: with family Occupation/Education: occupation Additional occupation/education comments: Housewife Gender identity (if verbalized by the patient): Female Spiritual care concerns: No Agree to blood products: Yes Anes - Eval Final PreProcedure Day of Procedure 03/23/25 08:27 Patient weight: obese Heart: regular rate and rhythm Lungs: clear to auscultation Airway: Mallampati scale class II Neurological: alert and oriented Last oral intake: >/= 8 hours ASA classification: III Emergent: no Anesthetic plan: proceed Anesthesia type and monitoring: general GIVS and standard monitoring Results Review: All pre-operative results and documents have been reviewed as part of the pre- operative evaluation. Informed Consent: The patient's anesthetic plan and its attendant risks and benefits were discussed with the patient/family/POA. Questions were solicited and answers provided to the satisfaction of the patient/family/POA.
--- NOTE | 2025-03-23 08:50 | S_PTH ---
PATIENT: Monie Washburn LOC: [facility] U#:[id number] AGE/SX: 44/F ROOM: RE03/23/[address]: Cayla Deluna MD : 1980 BED: DIS: 03/23/2025 SPEC #: [id number] RECD: 03/23/25 10:15 STATUS: ABRIL REQ #: [id number] POPPY: 03/23/25 08:[address]: Cayla Deluna DEPT: [facility] Surgical RECD BY: Kat Acharya ENTERED: 03/23/25 10:15 SP TYPE: Surgical OTHR DR: Tamar Chen APRN Tissues: A - Endometrial Curettings Procedures: Hematoxylin and Eosin Stain Gross and Microscopic Level 4
--- NOTE | 2025-03-23 08:57 | P.OP_ITS ---
Procedure Note - Detailed Date of Procedure 03/23/25 Pre-op Diagnosis menorrhagia Post-op Diagnosis Same Procedure Performed D&C hysteroscopy with myomectomy Surgeon Cayla Deluna MD Anesthesia MAC Findings Uterus sounds to 10cm. There was a large fibroid filling over half the endometrial cavity. The remainder of the endometrium appears grossly normal. Description of Procedure The patient was taken to the operating room and placed under anesthesia in the dorsal lithotomy position. She was prepped and draped in the usual sterile fashion. [place] speculum was placed in the vagina and the cervix grasped on the anterior lip with a tenaculum. The uterus is sounded to 10cm. The diagnostic hysteroscope was placed and a large fibroid is noted. The camera was removed. The cervix is serially dilated to 6 Hegar and the large camera is obtained and placed. The Wave Aveta resection device was opened and placed. Under direct visualization the fibroid is removed in its entirety. The base of the fibroid appears to have risen from the posterior wall. Endometrium appears grossly normal with no abnormalities. The endometrium was sharply curetted with material obtained. All instruments are removed. Sponge, needle, and instrument counts are correct per the OR staff. The patient was taken to recovery in stable condition. Estimated Blood Loss 5 Drains No Packing No Pathology Yes (Endometrial shavings and curettings) Complications No immediate complications Condition Stable Disposition PACU
[2025-03-23 08:58] VITALS: BP 128/79; PULSE 87; RESP 14; O2SAT 94
[2025-03-23 09:25] VITALS: BP 145/88; PULSE 71; O2SAT 95
[2025-03-23] MEDS: oxyCODONE HCL (*CRX) 5 MG TAB IR PO (09:51)
[2025-03-23 09:55] VITALS: BP 163/90; PULSE 53
[2025-03-23 10:20] VITALS: BP 157/92; PULSE 49
== END 2025-03-23 10:25 | disposition home or self-care (01) ==
PROVIDERS: PCP Nurse Practitioner Family; Visit Provider Obstetrics & Gynecology Gynecology
PROC: 0U5B8ZZ Destruction of Endometrium, Via Natural or Artificial Opening Endoscopic (ICD-10-PCS; CPT 58563; principal; 2025-03-23 09:00)
DX: N92.0 Excessive and frequent menstruation with regular cycle (principal); N84.0 Polyp of corpus uteri; Z87.891 Personal history of nicotine dependence; E66.9 Obesity, unspecified; Z68.35 Body mass index [BMI] 35.0-35.9, adult
CPT/HCPCS: 58558; 88305; A9270; J2003; J2250; J2405; J2704; J7120